=== PATIENT | male | born 1995 | race Caucasian/White ===

== ENCOUNTER 2025-05-22 12:58 | Outpatient (CLI) | payer OTHER, SELFPAY ==
--- OUTSIDE RECORDS SUMMARY | 2025-05-22 13:06 | XMS_ITS | Clinical Summary ---
Author Organization [facility] Address [address] [place] [address] Care Team Providers Care Professional Architect Name Role Phone Ant Wells MD Primary Care Provider [phone] Allergies No known active allergies Medications ALPRAZolam (XANAX) 1 MG Tablet Take 1 mg by mouth 2 times daily. Active zolpidem (AMBIEN) 5 MG Tablet Take 5 mg by mouth nightly as needed. Active Resolved Problems Problem Noted Date Diagnosed Date Resolved Date Hematochezia 05/10/2018 05/10/2018 Social History Tobacco Use Types Packs/Day Years Used Date Smoking Tobacco: Never Smokeless Tobacco: Never Alcohol Use Standard Drinks/Week Comments No 0 (1 standard drink = 0.6 oz pur e alcohol) Sex and Gender Information Value Date Recorded Sex Assigned at Not on file Legal Sex Male 8:58 PM [employer] PERSON Gender Identity Not on file Sexual Orientation Not on file Last Filed Vital Signs Vital Sign Reading Time Taken Comments Blood Pressure 127/85 05/10/2018 10:16 AM CDT Pulse - - Temperature 36.8 C (98.2 F) 05/10/2018 9:09 AM CDT Respiratory Rate 18 05/10/2018 10:16 AM CDT Oxygen Saturation 100% 05/10/2018 10:16 AM CDT Inhaled Oxygen Concentration - - Weight 69.9 kg (154 lb) 05/03/2018 1:00 PM CDT Height 177.8 cm (5' 10) 05/03/2018 1:00 PM CDT Body Mass Index 22.1 05/03/2018 1:00 PM CDT Plan of Treatment Health Maintenance Due Date Last Done Comments Hepatitis C Virus (HCV) Screening 1994 TdaP Immunization 1994 Hepatitis B Immunization (1 of 3 - 19+ 3-dose series) 2013 Human Papillomavirus (HPV) Immunization (1 - 3-dose SCDM series) 2021 Influenza Immunization (#1) 2025 SARS-COV-2 Immunization (3 - 2024- season) 2025 01/27/2021, 12/30/2020 Respiratory Syncytial Virus (RSV) Immunization (Adult) (1 - 1-dose 75+ series) 2069 Meningococcal Immunization (ACWY) Aged Out No longer eligible b ased on patient's age to complete this topic Pneumococcal Immunization Combined Aged Out No longer eligible b ased on patient's age to complete this topic Rotavirus Immunization Aged Out No lo nger eligible based on patient's age to complete this topic Insurance Care Teams Professional Architect Relationship Specialty Start Date End Date Ant Wells MD [address] [place] [address] PCP - General Internal Medicine 05/10/18
[2025-05-22 15:17] LABS: Alanine Aminotransferase 19 U/L (6-50); Albumin Level 4.6 g/dL (3.5-5.1); Alkaline Phosphatase 71 U/L (38-126); Anion Gap 7 mmol/L (4-12); Aspartate Amino Transferase 32 U/L (17-59); Bilirubin,Total 1.7 mg/dL (0.2-1.3); Blood Urea Nitrogen 17 mg/dL (9-20); Calcium 9.4 mg/dL (8.4-10.2); Carbon Dioxide 27 mmol/L (22-30); Chloride 105 mmol/L (98-107); Estimated Glomerular Filt Rate > 60; Glucose 103 mg/dL (65-110); Potassium 4.3 mmol/L (3.4-5.0); Sodium 139 mmol/L (137-145); Total Protein 7.6 g/dL (6.3-8.2)
== END 2025-05-22 12:59 | disposition home or self-care (01) ==
LOC: ANHGOSHLAB 12:59
PROVIDERS: PCP Nurse Practitioner; Visit Provider Nurse Practitioner
DX: E83.52 Hypercalcemia (principal); E87.0 Hyperosmolality and hypernatremia
CPT/HCPCS: 36415; 80053